=== PATIENT | female | born 2000 | race Caucasian/White ===

== ENCOUNTER 2019-10-16 11:28 | Outpatient (CLI) | payer OTHER, SELFPAY ==
--- NOTE | ~2019-10-16 | US_ITS ---
EXAMINATION: US venous doppler [facility] DATE: 10/16/2019 12:26 INDICATION: Left upper limb pain TECHNIQUE: Grayscale images without and with compression and Doppler images of the bilateral upper ex tremity veins were obtained. COMPARISON: None. FINDINGS: The right internal jugular vein, subclavian vein, axillary vein, brachial vein, basilic vein, cephali c vein, radial vein, and ulnar vein are patent. The left internal jugular vein, subclavian vein, axillary vein, brachial vein, basilic vein, cephalic vein, radial vein, and ulnar vein are patent. IMPRESSION: 1. Patent bilateral upper extremity veins. No evidence of venous thrombosis. Reviewed, dictated and finalized at location A.
== END 2019-10-16 11:29 | disposition home or self-care (01) ==
PROVIDERS: PCP Family Medicine; Visit Provider Physician Assistant Medical
DX: R22.32 Localized swelling, mass and lump, left upper limb (principal); Z86.718 Personal history of other venous thrombosis and embolism
CPT/HCPCS: 93970

== ENCOUNTER 2019-11-24 11:15 | Outpatient (CLI) | payer OTHER, SELFPAY ==
--- NOTE | ~2019-11-24 | CT_ITS ---
EXAMINATION: CTA chest PE protocol DATE: 11/24/2019 13:24 INDICATION: Other pulmonary embolus without acute cor pulmonale. TECHNIQUE: Computed tomography angiography (CTA) of the chest was performed with 100 mL Omnipaque-350 intravenous contrast timed to evaluate the pulmonary arteries. Coronal maximum intensity projection 3D-reconstructions were created by the technologist. Automated exposure control and iterative reconst ruction technique were employed. The dose-length product was 461.77 mGy-cm. COMPARISON: None. FINDINGS: There is mild dependent atelectasis on the right. There are groundglass opacities in the po sterobasal segment left lower lobe. No pleural effusion. The heart size is normal. No pericardial eff usion. There is no pulmonary embolus. There is diffuse hepatic steatosis. The bones are unremarkable. IMPRESSION: 1. No pulmonary embolus. Sensitivity is mildly decreased by motion artifact. 2. Groundglass opacities in posterobasal segment left lower lobe, consistent with atelectasis versus pneumonia. Reviewed, dictated and finalized at location A. IMPRESSION: 1. No pulmonary embolus. Sensitivity is mildly decreased by motion artifact. 2. Groundglass opacities in posterobasal segment left lower lobe, consistent wi th atelectasis versus pneumonia.
[2019-11-24 13:14] LABS: Estimated Glomerular Filt Rate > 60
== END 2019-11-24 11:16 | disposition home or self-care (01) ==
PROVIDERS: PCP Family Medicine; Visit Provider Physician Assistant Medical
DX: I26.99 Other pulmonary embolism without acute cor pulmonale (principal); I49.9 Cardiac arrhythmia, unspecified; R06.02 Shortness of breath; R91.8 Other nonspecific abnormal finding of lung field
CPT/HCPCS: 71275; Q9967

== ENCOUNTER 2020-07-03 09:23 | Outpatient (CLI) | payer OTHER, SELFPAY ==
--- NOTE | ~2020-07-03 | US_ITS ---
US venous doppler [facility] DATE: 07/03/2020 09:58 INDICATION: Right lower leg and calf pain, swelling TECHNIQUE: Real-time and color flow imaging and Doppler analysis of the veins of both lower extremiti es COMPARISON: 10/16/2019 venous duplex examination of both lower extremities: These images were not avai lable from PACS at time of interpretation. FINDINGS: The greater saphenous veins are patent. There is spontaneous and phasic flow and normal aug mentation and color flow signal and normal compression of the deep veins of both lower extremities. T here is a thin septum of the popliteal vein. The vein completely compresses. IMPRESSION: No evidence of deep venous thrombosis. Reviewed, dictated and finalized at Location A. Reviewed, dictated and finalized at location A.
[2020-07-03 10:36] LABS: Prothrombin Time 13.5 Seconds (11.1-14.7)
[2020-07-03 10:39] LABS: D Dimer 0.27 ug/mL (<0.48)
== END 2020-07-03 09:24 | disposition home or self-care (01) ==
LOC: ANHIMG 09:24
PROVIDERS: PCP Family Medicine; Visit Provider Physician Assistant Medical
DX: M79.661 Pain in right lower leg (principal); Z86.711 Personal history of pulmonary embolism; Z86.718 Personal history of other venous thrombosis and embolism
CPT/HCPCS: 36415; 85380; 85610; 93970

== ENCOUNTER 2021-05-19 17:28 | Outpatient (CLI) | payer OTHER, SELFPAY ==
[2021-05-21 20:53] LABS: Antithrombin III Activity 105 % normal (80-135)
[2021-05-22 03:16] LABS: Lupus dRVVT 1:1 Mix Interpreta Not Indicated; Lupus dRVVT Screen 31 sec (<=45); PTT-LA Screen 32 sec (<=40)
[2021-05-25 19:34] LABS: Factor V (Leiden) Mutation NEGATIVE
== END 2021-05-19 17:29 | disposition home or self-care (01) ==
LOC: ANHLAB 17:31
PROVIDERS: PCP Family Medicine; Visit Provider Family Medicine
DX: I63.9 Cerebral infarction, unspecified (principal)
CPT/HCPCS: 36415; 81241; 85300; 85303; 85306; 85613; 85730

== ENCOUNTER 2021-05-20 09:11 | Outpatient (CLI) | payer OTHER, SELFPAY ==
--- NOTE | ~2021-05-20 | US_ITS ---
EXAMINATION: US venous doppler [facility] DATE: 05/20/2021 09:52 INDICATION: Right lower limb pain TECHNIQUE: Grayscale ultrasound images without and with compression and Doppler ultrasound images of the right lower extremity veins were obtained. COMPARISON: None. FINDINGS: The visualized portions of right common femoral vein, profunda (deep) femoral vein, femoral vein, pop liteal vein, peroneal trunk, posterior tibial veins, peroneal veins, gastrocnemius vein and greater s aphenous vein outflow are patent. IMPRESSION: 1. No deep venous thrombosis in the right lower limb. Reviewed, dictated and finalized at location A.
== END 2021-05-20 09:12 | disposition home or self-care (01) ==
PROVIDERS: PCP Family Medicine; Visit Provider Family Medicine
DX: M79.661 Pain in right lower leg (principal); Z86.718 Personal history of other venous thrombosis and embolism
CPT/HCPCS: 93971

== ENCOUNTER 2023-04-26 10:24 | Outpatient (CLI) | payer OTHER, SELFPAY ==
--- NOTE | 2023-05-10 14:50 | WPDSLEEPSTUD ---
Sleep Study Date of Study: 04/26/23 Ordering Provider: Tianna Ponce DO Interpreting Physician: Tianna Ponce DO Sleep Study Type: Polysomnogram Height: 1.65 m Weight: 72.575 kg Body Mass Index: 26.6 Neck Circumference (inches): 14 [place]: 21 Reason for Sleep Study Excessive daytime sleepiness Sleep History The patient is a 22-year-old female with anxiety, depression, ADHD and history of multiple DVTs and strokes that is being evaluated for excessive daytime sleepiness. The patient denies awakening from sleep short of breath. She denies awakening at night with heartburn, belching cough. She denies snoring. She denies having trouble sleeping she has a cold. She denies waking up gasping for air throughout the. She denies having breathing problems at observed by herself or others. She frequently sweats excessively at night. She denies having heart palpitations or irregular heartbeats during night. She constantly falls asleep during the day but rarely falls asleep while driving. She denies sleep paralysis and cataplexy. She constantly has trouble at school or work due to sleepiness. She constantly experiences vivid dreamlike scenes upon awakening or asleep she denies feeling afraid of going to sleep. She frequently has nightmares. She frequently remembers her dreams. She frequently has thoughts racing through her mind. She denies feeling sad or depressed. She rarely has anxiety. She occasionally has muscular tension. She occasionally notices parts of her body jerk. She occasionally kicks during the night. She rarely has crawling and aching feelings in her legs but denies pain during the night. She goes to bed at 8:00 p.m. on weekdays and between 8-9 p.m. on the weekends. It takes her less than 10 minutes to fall asleep. She wakes up once or twice throughout the night to get a drink of water and is able to fall back asleep within 5. She wakes up between 4-5 a.m. on weekdays and between 8-9 a.m. the weekends. She typically gets 10-16 hours of sleep per night. She will stay in bed for 30 minutes after waking up in the morning. She currently lives with her fiance she will consume caffeinated beverages within 2 hours of bedtime. She denies engaging in physical exercise before bedtime. She will watch television before falling asleep. She will take naps in afternoon or the evening but they are not refreshing. She consumes 4 caffeinated beverages per day. She denies tobacco, alcohol and recreational drug use. [facility] Past Medical History Medical History BMI 27.0-27.9,adult BMI 28.0-28.9,adult BMI 29.0-29.9,adult Cerebrovascular accident (CVA) with involvement of left side of body COVID-19 Pulmonary emboli Family History Family History Father No problems noted. Mother Factor 5 Leiden mutation, heterozygous Sibling No problems noted. Social History Social History Smoking status: Never smoker Second hand tobacco smoke exposure: No Alcohol intake: current Substance use: never Substance use type: does not use Do You Feel Safe in your Home?: Yes Lack of Transportation: No Lack of Food: Never True Current Housing: I Do Not Have Housing Concerned About Future Housing: No Difficulty Paying Gas/Electric Bills: No Difficulty Paying for Meds: No Currently Unemployed: No Education: Associate Degree Difficulty w/ Childcare or Family Care: No Living arrangements: with family Occupation/Education: student Additional occupation/education comments: [employer] graduates 02/13 Gender identity (if verbalized by the patient): Female Medications Home Medications Medication Instructions Recorded Confirmed Type fluticasone propionate 50 2 spray intranasal DAILY #18.2 mL 06/27/19 04/07/23
[2023-05-10 15:02] VITALS: BMI 26.6
--- NOTE | 2023-05-10 15:16 | WPDSLEEPSTUD ---
Sleep Study Date of Study: 04/26/23 Ordering Provider: Tianna Ponce DO Interpreting Physician: Tianna Ponce DO Sleep Study Type: Multiple Sleep Latency Test Height: 1.65 m Weight: 72.575 kg Body Mass Index: 26.6 Neck Circumference (inches): 14 [place]: 21 Reason for Sleep Study Excessive daytime sleepiness Sleep History Please see sleep history on PSG report from the previous night. [facility] [place] Past Medical History Medical History BMI 27.0-27.9,adult BMI 28.0-28.9,adult BMI 29.0-29.9,adult Cerebrovascular accident (CVA) with involvement of left side of body COVID-19 Pulmonary emboli Family History Family History Father No problems noted. Mother Factor 5 Leiden mutation, heterozygous Sibling No problems noted. Social History Social History Smoking status: Never smoker Second hand tobacco smoke exposure: No Alcohol intake: current Substance use: never Substance use type: does not use Do You Feel Safe in your Home?: Yes Lack of Transportation: No Lack of Food: Never True Current Housing: I Do Not Have Housing Concerned About Future Housing: No Difficulty Paying Gas/Electric Bills: No Difficulty Paying for Meds: No Currently Unemployed: No Education: Associate Degree Difficulty w/ Childcare or Family Care: No Living arrangements: with family Occupation/Education: student Additional occupation/education comments: [employer] graduates 02/13 Gender identity (if verbalized by the patient): Female Medications Home Medications Medication Instructions Recorded Confirmed Type fluticasone propionate 50 2 spray intranasal DAILY #18.2 mL 06/27/19 04/07/23 Rx mcg/actuation nasal spray,suspension (Allergy Relief (fluticasone)) albuterol sulfate 90 mcg/actuation 1 inhalation inhalation Q4H PRN 11/24/19 04/07/23 Rx aerosol inhaler (ProAir HFA) bronchospasm #6.7 grams aspirin 325 mg tablet 325 mg PO DAILY #30 tabs 10/02/20 02/14/24 Rx warfarin 5 mg tablet 5 mg PO DAILY 08/13/21 04/07/23 History bupropion HCl 150 mg 24 hr tablet, 150 mg PO QAM #90 tabs 04/10/22 04/07/23 Rx extended release (Wellbutrin XL) sertraline 25 mg tablet 25 mg PO DAILY #30 tabs 02/08/23 04/07/23 Rx rimegepant 75 mg disintegrating 75 mg PO DAILY PRN migraine 03/25/23 04/07/23 Rx tablet (Nurtec ODT) headache #15 tabs dextroamphetamine-amphetamine 10 10 mg PO DAILY #30 tabs 04/02/23 04/07/23 Rx mg tablet (Adderall) dextroamphetamine-amphetamine ER 10 mg PO DAILY #30 caps 04/02/23 04/07/23 Rx 10 mg 24hr capsule,extend release (Adderall XR) Sleep Procedure The recording montage for the MSLT includes frontal (F3-M2 or F4-M1), central (C3-M2 or C4-M1), occipital (O1-M2 or O2-M1) derivations, left and right eye EOGs, mental/submental EMG, and EKG.? Nap Summary: Nap trials started at 07:09:22 AM following an overnight polysomnogram that ended at 05:07:59 AM from an overnight PSG with an overall Apnea Hypopnea index of 0.9 events per hour. Sleep onset REM (SOREM) did not occur during the overnight polysomnogram. Nap 1 commenced at 07:09:22 AM. Sleep latency was 5.4 minutes. REM sleep was not achieved. Total sleep time was 14.9 minutes. Nap was terminated at 07:30:44 AM. The patient reported that sleep possibly occurred.The patient reported that dreaming did not occur. Nap 2 commenced at 09:02:49 AM. Sleep latency was 2.5 minutes. REM sleep was not achieved. Total sleep time was 14.5 minutes. Nap was terminated at 09:20:49 AM. The patient reported that sleep occurred .The patient reported that dreaming did not occur. Nap 3 commenced at 11:02:49 AM. Sleep latency was 10 minutes. REM sleep was not achieved. Total sleep time was 14.9 minutes. Nap was terminated at 11:29:44. The patie
[2023-05-10 15:18] VITALS: BMI 26.6
== END 2023-04-27 16:15 | disposition home or self-care (01) ==
LOC: ANHCSM 10:24
PROVIDERS: PCP Family Medicine; Visit Provider Family Medicine
DX: G47.19 Other hypersomnia (principal); G47.14 Hypersomnia due to medical condition
CPT/HCPCS: 95805; 95810